=== PATIENT | female | born 1985 | race African-American/Black ===

== ENCOUNTER 2019-03-15 03:05 | Emergency (ER) | payer OTHER ==
[~2019-03-15] VITALS: Ht 167.6 cm; Wt 108.0 kg
[~2019-03-15 03:05] MED LIST: ACETAMINOPHEN-1 EAC1 PO; APAP500 PO; BENADRYL25 MG; BIOTIN800 MCG PO; CIPROFLOXACIN500 M1 PO; COLACE 100 MG100 MG PO; EAR WAX DROPS15 ML OT; FLAGYL500 MG PO; FLEXERIL PO; HYDROCODON-ACE1 EAC5 PO; IBUPROFEN 800800 M1 PO; IRON325 PO; LANOLIN56 GM; MACROBID 100 M100 M1 PO; MOM PO; MULTIVITAMINS PO; NOHOMEMEDICATIONS; NORCO 5-325 TA1 EACH PO; PHENERGAN 25 MG25 M1 PO; POTASSIUM20 PO; PRENATAL; PRENATAL COMPL1 EACH PO; PRENATAL TABLE1 EAC3 PO; PROTONIX40 MG PO; SLOW-MAG64 MG PO; TRINESSA1 EACH PO; ULTRAM 50MG TAB50 MG PO; ZOFRAN ODT4 MG PO; ZYRTEC
[2019-03-15] MEDS ORDERED: MEDROLDOSEPACK PO (04:13)
[2019-03-15 04:52] VITALS: BP 123/68
--- NOTE | 2019-03-15 08:13 | EKG ---
[address] [address] ELECTROCARDIOGRAM REPORT Name: DURAN DAMON Room #: [facility] [id number] ������������������ Admission: 03/15/19 ������������������ Attend Phys: Discharge: 03/15/19 ������������������ Date of : 83 Report #: [id number] ����������������������������������������������������������������� [id number] THIS REPORT FOR: //name// [facility] ED Test Date: 2019-03-15 Test Time: 03:09:36 Pat Name: DURAN DAMON Department: Room: Gender: F [employer]ter: POLLO : 1985 Requested By: John Avila Order Number: [id number] MD: Wilbert Smith Measurements Intervals [place] Rate: 65 P: 40 UT: 149 QRS: 65 QRSD: 89 T: 41 QT: 410 QTc: 427 Interpretive Statements Sinus rhythm Probable left atrial enlargement Compared to ECG 09/20/2014 06:00:09 No significant changes Electronically Signed On 03-15-2019 8:13:04 CDT by Wilbert Smith [email or web address] ��������������������������������������������� <ELECTRONICALLY SIGNED> ���������������������������������������� By: Wilbert Smith MD ��������������������������������������������� 03/15/19 0813 D: 09/308 8 Wilbert Smith MD /JEFFERY
== END 2019-03-15 04:57 | disposition home or self-care (01) ==
LOC: ER 03:05
DX: R07.89 Other chest pain (principal); R06.02 Shortness of breath; E28.2 Polycystic ovarian syndrome; Z88.1 Allergy status to other antibiotic agents; Z98.890 Other specified postprocedural states; Z90.711 Acquired absence of uterus with remaining cervical stump